=== PATIENT | male | born 1985 | race Caucasian/White ===

== ENCOUNTER 2024-01-27 05:00 | Emergency (ER) | payer BC, SELFPAY ==
[2024-01-27] VITALS (26 sets, daily range): BP systolic 156–199; BP diastolic 98–125; PULSE 80–92; TEMP 36.8; O2SAT 78–99; BMI 41.1
--- NOTE | 2024-01-27 05:06 | XR_ITS ---
The [address] [address] Patient Name: ALAYNA TEJADA MRN: [id number] date: 1985 Sex: M Assigned Patient Location: ER Current Patient Location: ED.MAIN Accession/Order Number: [id number] Exam Date: 01/27/2024 05:13 Report Date: 01/27/2024 06:11 At the request of: BRIAN GARCIA Procedure: XR chest 1V EXAM: XR chest 1V HISTORY: Shortness of breath. COMPARISON: None. TECHNIQUE: AP erect portable chest radiograph performed. FINDINGS: The trachea is midline. The cardiac mediastinal silhouette and hilar shadows are unremarkable. There is mild patchy density within the left lower chest. Correlate with clinical findings of a pneumonia. There is no pleural effusion or pulmonary vascular congestion. There is no pneumothorax or osseous abnormality. XR/XR chest 1V IMPRESSION: There is mild patchy density within the left lower chest. Correlate with clinical findings of a pneumonia. Electronically authenticated by: ALEIDA PATIÑO Date: 01/27/2024 06:11
--- NOTE | 2024-01-27 05:06 | ECG_ITS ---
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
[2024-01-27 05:19] LABS: Basophils Absolute Auto 0.1 10^3/uL (0.0-0.1); Basophils Percent Auto 0.6 % (0.2-2.0); Eosinophils Absolute Auto 0.5 10^3/uL (0.0-0.7); Eosinophils Percent Auto 3.8 % (0.9-7.0); Hematocrit 42.6 % (42.0-54.0); Immature Granulocytes Abs Auto 0.05 10^3/uL (0.00-0.03); Immature Granulocytes Pct Auto 0.4 % (0.0-0.5); Lymphocytes Absolute Auto 1.9 10^3/uL (1.2-3.8); Lymphocytes Percent Auto 13.8 % (20.5-60.0); Mean Corpuscular HGB Conc 32.9 g/dL (29.9-35.2); Mean Corpuscular Volume 94.2 fL (80.0-94.0); Monocytes Absolute Auto 0.6 10^3/uL (0.3-0.8); Monocytes Percent Auto 4.5 % (1.7-12.0); Neutrophils Absolute Auto 10.5 10^3/uL (1.4-6.5); Neutrophils Percent Auto 76.9 % (43.0-75.0); Platelet Count 183 10^3/uL (150-450); Red Blood Count 4.52 10^6/uL (4.70-6.10); Red Cell Distribution Width 13.8 % (11.0-15.0); White Blood Count 13.7 10^3/uL (4.0-11.0)
[2024-01-27] MEDS: ALBUTEROL SULFATE 2.5 MG/3 ML VIAL NEB IH (05:24)
[2024-01-27 05:29] LABS: Anion Gap 14.4; BUN Creatinine Ratio 13.9; Calcium 7.3 mg/dL (8.5-10.1); Carbon Dioxide 29.4 mmol/L (21.0-32.0); Chloride 103 mmol/L (98-107); Estimated GFR (African America >60 (>=60); Estimated GFR (Non-African Ame >60 (>=60); Glucose 132 mg/dL (74-106); Potassium 3.8 mmol/L (3.5-5.1); Sodium 143 mmol/L (136-145)
--- NOTE | 2024-01-27 05:31 | ED.SOB1 ---
HPI - SOB/Dyspnea General Chief Complaint: Shortness of Breath/Dyspnea Stated Complaint: SOB Time Seen by Provider: 01/27/24 05:03 Source: patient Mode of arrival: ambulance Limitations: no limitations History of Present Illness HPI Narrative: 38-year-old presents for shortness of breath. He states he was trying to lie down in the back of his truck at about 11 PM when it started. He had this shortness of breath all night and when the paramedics came to pick him up his O2 sat was reportedly 78%. They gave him an aerosol treatment. He was also 78% O2 sat when he first got here. He states he feels better now. He reports he has no history of breathing problems or any medical issues but he states he is stubborn and that is why he went to go all night. He does not complain of chest pain or fever or cough. Related Data Allergies Allergy/AdvReac Type Severity Reaction Status Date / Time No Known Drug Allergies Allergy Verified 01/27/24 05:06 Review of Systems ROS Narrative A ten point review of systems is negative except as noted above. Exam Narrative Exam Narrative: Nurses note and vital signs reviewed and patient is not hypoxic. General: The patient appears well and in no apparent distress. Patient is resting comfortably on cart. Skin: Warm, dry, no pallor noted. There is no rash noted. Head: Normocephalic, atraumatic Eye: Normal conjunctiva, no drainage Ears, Nose, Mouth, and Throat: oral mucosa is moist. Nares patent. Cardiovascular: Regular Rate and Rhythm Respiratory: Breath sounds are equal bilaterally. Some rhonchi are present. Back: non-tender GI: Soft and nontender Musculoskeletal: The patient has no evidence of calf tenderness, no pitting edema, symmetrical pulses noted bilaterally Neurological: A&O, normal speech Psychiatric: Cooperative Constitutional Vital Signs, click to edit/add: Last Vital Signs Temp 98.3 F 01/27/24 05:03 Pulse 83 01/27/24 06:06 Resp 14 01/27/24 06:06 BP 156/103 H 01/27/24 06:06 Pulse Ox 98 01/27/24 06:06 O2 Del Method Nasal Cannula 01/27/24 05:26 O2 Flow Rate 3 01/27/24 05:38 Course Vital Signs Vital signs: Vital Signs Temperature 98.3 F 01/27/24 05:03 Pulse Rate 89 06/28/24 05:03 Respiratory Rate 18 01/27/24 05:03 Blood Pressure 190/120 H 01/27/24 05:03 Pulse Oximetry 78 L 01/27/24 05:03 Oxygen Delivery Method Room Air 01/27/24 05:03 Temperature 98.3 F 01/27/24 05:03 Pulse Rate 83 01/27/24 06:06 Respiratory Rate 14 01/27/24 06:06 Blood Pressure 156/103 H 01/27/24 06:06 Pulse Oximetry 98 01/27/24 06:06 Oxygen Delivery Method Nasal Cannula 01/27/24 05:26 Oxygen Delivery Flow Rate 3 01/27/24 05:38 MDM - SOB/Dyspnea MDM Narrative Medical decision making narrative: Troponin is elevated at 158. CTA is pending and the patient is signed out to Dr. Mccurdy at change of shift. Differential Diagnosis Differential diagnosis: Likely congestive heart failure, community acquired pneumonia, pulmonary embolism and other (Pneumothorax) Lab Data Attestation: I reviewed the patient's lab results. Labs: Lab Results 01/27/24 Range/Units 05:10 WBC 13.7 H (4.0-11.0) 10^3/uL RBC 4.52 L (4.70-6.10) 10^6/uL Hgb 14.0 (14.0-18.0) g/dL Hct 42.6 (42.0-54.0) % MCV 94.2 H (80.0-94.0) fL MCH 31.0 (25.9-34.0) pg MCHC 32.9 (29.9-35.2) g/dL RDW 13.8 (11.0-15.0) % Plt Count 183 (150-450) 10^3/uL MPV 12.0 (9.5-13.5) fL Neut % (Auto) 76.9 H (43.0-75.0) % Lymph % (Auto) 13.8 L (20.5-60.0) % [place] % (Auto) 4.5 (1.7-12.0) % Eos % (Auto) 3.8 (0.9-7.0) % Baso % (Auto) 0.6 (0.2-2.0) % Neut # (Auto) 10.5 H (1.4-6.5) 10^3/uL Lymph # (Auto) 1.9 (1.2-3.8) 10^3/uL [place] # (Auto) 0.6 (0.3-0.8) 10^3/uL Eos # (Auto) 0.5 (0.0-0.7) 10^3/uL Baso # (Auto) 0.1 (0.0-0.1) 10^3/uL Abs Immat Gran (auto) 0.05 H (0.00-0.03) 10^3/uL Imm/Tot Granulo (auto) 0.4 (0.0-0.5) % Sodium 143 (136-145) mmol/L Potassium 3.8 (3.5-5.1) mmol/L Chloride 103 (98-107) mmol/L Carbon Dioxide 29.4 (21.0-32.0) mmol/L Anion Gap 14.4 BUN 16.0 (7.0-18.0) mg/dL Creatinine 1.15 (0.70-1.30) mg/dL Est GFR ( Amer) >60 (>=60) Est GFR (Non-Af Amer) >60 (>=60) BUN/Creatinine Ratio 13.9 Glucose 132 H (74-106) mg/dL Calcium 7.3 L (8.5-10.1) mg/dL Troponin I High Sens 158.6 H* (4.0-76.1) pg/mL NT-Pro-B Natriuret Pep 368.0 (<=450.0) pg/mL Imaging Data Chest x-ray: Radiologist's impression: ITS Impressions Chest X-Ray 01/27/24 05:06 IMPRESSION: There is mild patchy density within the left lower chest. Correlate with clinical findings of a pneumonia. Electronically authenticated by: ALEIDA PATIÑO Date: 01/27/2024 06:11 ECG Data Attestation: I personally reviewed and interpreted this ECG as follows: (EKG on my interpretation shows sinus rhythm with a rate of 81 and no acute change.) Discharge Plan Discharge Patient Disposition: Still a Patient
[2024-01-27 05:42] LABS: Troponin I High Sensitivity 158.6 pg/mL (4.0-76.1)
--- NOTE | 2024-01-27 06:15 | CT_ITS ---
The [address] [address] Patient Name: ALAYNA TEJADA MRN: [id number] date: 1985 Sex: M Assigned Patient Location: ER Current Patient Location: Accession/Order Number: [id number] Exam Date: 01/27/2024 06:42 Report Date: 01/27/2024 07:27 At the request of: BRIAN GARCIA Procedure: CT angio chest EXAMINATION: CT angio chest HISTORY: sob COMPARISON: No relevant comparison available. TECHNIQUE: Multi-planar CT images were created with IV contrast. Axial, Coronal, and Sagittal images. Dose reduction techniques were achieved by using automated exposure control and/or adjustment of mA and/or kV according to patient size and/or use of iterative reconstruction technique. FINDINGS: LUNGS: 2.2 cm area of groundglass and semisolid density in the right upper lobe best seen on axial image #45 with the semisolid component on axial image #44 measuring 7 mm. Additional nodules are identified throughout the lungs the largest in the superior segment of the right lower lobe measures 9.6 mm, axial image #60. Dependent opacities, atelectasis is favored PLEURA: 1.9 cm right and 0.9 cm left pleural effusions VASCULATURE: Normal postcontrast opacification of the central pulmonary arterial tree with no filling defects AGNES: Right hilar lymphadenopathy MEDIASTINUM: Prevascular pretracheal and subcarinal lymphadenopathy the largest lymph node in the subcarinal position measures 3.0 x 1.9 cm CARDIAC: No enlargement or pericardial effusion Coronary arteries: Absent calcifications AORTA: No aneurysm or dissection. CHEST WALL: No mass or axillary adenopathy. BONES: No bone lesion or fracture. LIMITED ABDOMEN: No suspicious findings. Limited images of the upper abdomen. OTHER: Negative. CT/CT angio chest IMPRESSION: No central pulmonary thromboembolic disease Scattered solid and semisolid and groundglass pulmonary nodules detailed above. In light of the right hilar and mediastinal lymphadenopathy. Further evaluation with PET scan is recommended to evaluate metabolic status Small bilateral pleural effusions Electronically authenticated by: TONA DENISE Date: 01/27/2024 07:27
[2024-01-27] MEDS: ASPIRIN 81 MG TAB.CHEW 162 MG PO (07:14)
[2024-01-27 07:36] LABS: Troponin I High Sensitivity 139.9 pg/mL (4.0-76.1)
== END 2024-01-27 08:26 | disposition left against medical advice (07) ==
PROVIDERS: Emergency Provider Emergency Medicine
DX: I21.4 Non-ST elevation (NSTEMI) myocardial infarction (principal); I11.0 Hypertensive heart disease with heart failure; I50.9 Heart failure, unspecified; R06.00 Dyspnea, unspecified; R09.02 Hypoxemia; R79.89 Other specified abnormal findings of blood chemistry; E83.51 Hypocalcemia; R91.8 Other nonspecific abnormal finding of lung field; F17.200 Nicotine dependence, unspecified, uncomplicated; Z53.29 Procedure and treatment not carried out because of patient's decision for other reasons
CPT/HCPCS: 36415; 71045; 71275; 80048; 83880; 84484; 85025; 93005; 94640; 99285; J1940; Q9967

== ENCOUNTER 2024-01-27 23:46 | Emergency (ER) | payer BC, SELFPAY ==
[2024-01-27 23:55] VITALS: BP 193/110; PULSE 105; TEMP 36.4; O2SAT 93; BMI 41.1
[2024-01-27 23:59] VITALS: O2SAT 89
[2024-01-28] VITALS (31 sets, daily range): BP systolic 134–193; BP diastolic 80–116; PULSE 84–96; O2SAT 89–99
--- NOTE | 2024-01-28 00:03 | ECG_ITS ---
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
--- NOTE | 2024-01-28 00:10 | ED.SOB1 ---
HPI - SOB/Dyspnea General Chief Complaint: Shortness of Breath/Dyspnea Stated Complaint: sob Time Seen by Provider: 01/28/24 00:05 History of Present Illness HPI Narrative: patient is a local combination truck driver. Was seen yesterday for shortness of breath. Found to have an elevated troponin. He signed out AMA. now returned. States he is not able to lay down to sleep because he can't breathe. Has past history of HTN Related Data Allergies Allergy/AdvReac Type Severity Reaction Status Date / Time No Known Drug Allergies Allergy Verified 01/27/24 05:06 Review of Systems ROS Status of ROS 10 or more systems reviewed and unremarkable except as noted in history and below Exam Constitutional Vital Signs, click to edit/add: Last Vital Signs Temp 97.5 F L 01/27/24 23:55 Pulse 86 01/28/24 03:30 Resp 17 01/28/24 03:30 BP 134/96 H 01/28/24 03:01 Pulse Ox 94 L 01/28/24 03:30 O2 Del Method Room Air 01/28/24 00:05 Common normals: no apparent distress, average body habitus, oriented x3, no limitations, healthy appearing, alert and well nourished [facility] Common normals: normocephalic and head/scalp atraumatic Eye Common normals: EOMs intact bilaterally and conjunctivae normal Respiratory Common normals: normal respiratory effort, no retractions, no use of accessory muscles and clear to auscultation bilaterally Cardio Common normals: regular rate, regular rhythm, S1 normal heart sound and S2 normal heart sound GI Common normals: Normal to inspection, nondistended, normoactive bowel sounds present, soft to palpation and non-tender Extremity Common normals: normal to inspection and full ROM Neuro Common normals: oriented x3, CN's II-XII intact bilaterally, moves all extremities, no focal motor deficits and no sensory deficits noted Psych Appearance: grossly normal Course Vital Signs Vital signs: Vital Signs Temperature 97.5 F L 01/27/24 23:55 Pulse Rate 105 H 01/27/24 23:55 Respiratory Rate 21 H 01/27/24 23:55 Blood Pressure 193/110 H 01/27/24 23:55 Pulse Oximetry 93 L 01/27/24 23:55 Oxygen Delivery Method Room Air 01/27/24 23:55 Temperature 97.5 F L 06/28/24 23:55 Pulse Rate 86 01/28/24 03:30 Respiratory Rate 17 01/28/24 03:30 Blood Pressure 134/96 H 01/28/24 03:01 Pulse Oximetry 94 L 01/28/24 03:30 Oxygen Delivery Method Room Air 01/28/24 00:05 MDM - SOB/Dyspnea MDM Narrative Medical decision making narrative: patient presents complaining of orthopnea. Seen yesterday with dyspnea and hypoxemia. Found to have an elevated troponin. Signed out AMA. returns tonight with orthopnea. cxray with cardiomegaly and pulmonary edema. Troponin elevated and EKG NSR without acute changes. Discussed with Hair Spinning Machine Operator Dr Baez and he will like him admitted to hospitalist service and he will consult on the patient addendum: patient did have neg CTA chest yesterday. Patient accepted by the hospitalist service Lab Data Labs: Lab Results 01/28/24 Range/Units 00:20 WBC 11.6 H (4.0-11.0) 10^3/uL RBC 4.00 L (4.70-6.10) 10^6/uL Hgb 12.1 L (14.0-18.0) g/dL Hct 37.4 L (42.0-54.0) % MCV 93.5 (80.0-94.0) fL MCH 30.3 (25.9-34.0) pg MCHC 32.4 (29.9-35.2) g/dL RDW 13.7 (11.0-15.0) % Plt Count 184 (150-450) 10^3/uL MPV 11.8 (9.5-13.5) fL Neut % (Auto) 74.6 (43.0-75.0) % Lymph % (Auto) 14.6 L (20.5-60.0) % [place] % (Auto) 5.9 (1.7-12.0) % Eos % (Auto) 4.1 (0.9-7.0) % Baso % (Auto) 0.4 (0.2-2.0) % Neut # (Auto) 8.7 H (1.4-6.5) 10^3/uL Lymph # (Auto) 1.7 (1.2-3.8) 10^3/uL [place] # (Auto) 0.7 (0.3-0.8) 10^3/uL Eos # (Auto) 0.5 (0.0-0.7) 10^3/uL Baso # (Auto) 0.1 (0.0-0.1) 10^3/uL Abs Immat Gran (auto) 0.05 H (0.00-0.03) 10^3/uL Imm/Tot Granulo (auto) 0.4 (0.0-0.5) % Sodium 142 (136-145) mmol/L Potassium 3.6 (3.5-5.1) mmol/L Chloride 105 (98-107) mmol/L Carbon Dioxide 26.6 (21.0-32.0) mmol/L Anion Gap 14.0 BUN 14.0 (7.0-18.0) mg/dL Creatinine 1.11 (0.70-1.30) mg/dL Est GFR ( Amer) >60 (>=60) Est GFR (Non-Af Amer) >60 (>=60) BUN/Creatinine Ratio 12.6 Glucose 114 H (74-106) mg/dL Calcium 7.3 L (8.5-10.1) mg/dL Troponin I High Sens 143.0 H* (4.0-76.1) pg/mL NT-Pro-B Natriuret Pep 380.0 (<=450.0) pg/mL Imaging Data Chest x-ray: Radiologist's impression: ITS Impressions Chest X-Ray 01/28/24 00:16 IMPRESSION: 1. Cardiomegaly with pulmonary edema versus viral etiology.. 2. Hyperexpanded lungs which can be seen in the setting of COPD. Electronically authenticated by: EUGENIO ALARCON Date: 01/28/2024 01:08 Discharge Plan Discharge Chief Complaint: Shortness of Breath/Dyspnea Clinical Impression: Non-ST elevation GA (NSTEMI), CHF (congestive heart failure) Patient Disposition: [facility] Discharge Location: [facility] Mode of Transportation: EMS Discharge Date/Time: 01/28/24 04:11
--- NOTE | 2024-01-28 00:16 | XR_ITS ---
The [address] [address] Patient Name: ALAYNA TEJADA MRN: [id number] date: 1985 Sex: M Assigned Patient Location: ED.MAIN Current Patient Location: ER Accession/Order Number: [id number] Exam Date: 01/28/2024 00:30 Report Date: 01/28/2024 01:08 At the request of: MARCELLO LEVI Procedure: XR chest 1V EXAM: CHEST X-RAY HISTORY: Chest pain. COMPARISON: 01/27/2024 chest x-ray TECHNIQUE: 1 view chest is submitted for review. FINDINGS: Lines and tubes: None. The lungs are hyperexpanded. Interstitial opacities are demonstrated throughout bilateral lung swann. No effusion. The cardiac silhouette is enlarged.. Pulmonary vascularity is dominant. Osseous structures are within expected limits for patients age. . XR/XR chest 1V IMPRESSION: 1. Cardiomegaly with pulmonary edema versus viral etiology.. 2. Hyperexpanded lungs which can be seen in the setting of COPD. Electronically authenticated by: EUGENIO ALARCON Date: 01/28/2024 01:08
[2024-01-28 00:45] LABS: Basophils Absolute Auto 0.1 10^3/uL (0.0-0.1); Basophils Percent Auto 0.4 % (0.2-2.0); Eosinophils Absolute Auto 0.5 10^3/uL (0.0-0.7); Eosinophils Percent Auto 4.1 % (0.9-7.0); Hematocrit 37.4 % (42.0-54.0); Hemoglobin 12.1 g/dL (14.0-18.0); Immature Granulocytes Abs Auto 0.05 10^3/uL (0.00-0.03); Immature Granulocytes Pct Auto 0.4 % (0.0-0.5); Lymphocytes Absolute Auto 1.7 10^3/uL (1.2-3.8); Lymphocytes Percent Auto 14.6 % (20.5-60.0); Mean Corpuscular HGB Conc 32.4 g/dL (29.9-35.2); Mean Corpuscular Hemoglobin 30.3 pg (25.9-34.0); Mean Corpuscular Volume 93.5 fL (80.0-94.0); Mean Platelet Volume 11.8 fL (9.5-13.5); Monocytes Absolute Auto 0.7 10^3/uL (0.3-0.8); Monocytes Percent Auto 5.9 % (1.7-12.0); Neutrophils Absolute Auto 8.7 10^3/uL (1.4-6.5); Neutrophils Percent Auto 74.6 % (43.0-75.0); Platelet Count 184 10^3/uL (150-450); Red Cell Distribution Width 13.7 % (11.0-15.0); White Blood Count 11.6 10^3/uL (4.0-11.0)
[2024-01-28 01:07] LABS: BUN Creatinine Ratio 12.6; Calcium 7.3 mg/dL (8.5-10.1); Carbon Dioxide 26.6 mmol/L (21.0-32.0); Chloride 105 mmol/L (98-107); Estimated GFR (African America >60 (>=60); Estimated GFR (Non-African Ame >60 (>=60); Glucose 114 mg/dL (74-106); Potassium 3.6 mmol/L (3.5-5.1); Sodium 142 mmol/L (136-145)
[2024-01-28] MEDS: FUROSEMIDE 40 MG/4 ML VIAL IVP (01:51)
== END 2024-01-28 04:11 | disposition short-term general hospital (02) ==
PROVIDERS: Emergency Provider Internal Medicine
DX: I21.4 Non-ST elevation (NSTEMI) myocardial infarction (principal); I11.0 Hypertensive heart disease with heart failure; I50.9 Heart failure, unspecified
CPT/HCPCS: 36415; 71045; 80048; 83880; 84484; 85025; 93005; 99285; J1940